=== PATIENT | male | born 1965 | race Caucasian/White ===

== ENCOUNTER 2021-02-04 13:18 | Emergency (ER) | payer OTHER ==
[~2021-02-04] VITALS: Ht 172.7 cm; Wt 68.0 kg
--- NOTE | ~2021-02-04 | EMS ---
[address] [address] EMS Patient Care Report Name: LONNIE MAYEN Room #: PRE M.R.#: [id number] Admission: Attend Phys: Discharge: Date of : 69 Report #: [id number] THIS REPORT FOR: //name// Report Transmitted: 02/04/2021 13:17 EMS Care Summary [facility] Incident [id number] @ 02/04/2021 12:16 Incident Location [address] [place] [address] Patient LONNIE MAYEN Male, 55 Years 1965 Patient Address [address] [place] [address] Patient History Other chronic pancreatitis,Kidney Stone, Patient Allergies No known allergies, Chief Complaint Abdominal pain/discomfort Disposition Transported No Lights/[place] Dispatch Reason Breathing Problem Transported To [facility] Narrative [id number] DISPATCHED EMERGENT IN RESPONSE TO A 911 CALL OF RESPIRATORY DISTRESS. UPON ARRIVAL PT WAS FOUND TO BE LAYING ON HIS SIDE ON THE FLOOR IN A DOOR-WAY. PT WAS ASSESSED PINK WARM AND DRY WELL A&O X4. PT WAS BREATHING AT A FORCED INCREASED RATE AND WAS PHYSICALLY NON-LABORED HOWEVER PT WOULD FORCE unnecessary AND loud RESPIRATIONS. PT HAD NO INDICATION OF DISTRESS. PT INDICATED HE HAD SEVERE ABDOMINAL AND BILATERAL FLANK PAIN. PT INDICATED HE HAD [address] [address] EMS Patient Care Report Name: LONNIE MAYEN Room #: PRE [facility]..#: [id number] Admission: Attend Phys: Discharge: Date of : 69 Report #: [id number] BEEN EXPERIENCING THIS PAIN FOR APRX. A MONTH NOW AND INDICATED HE HAD BEEN TO THE ER ABOUT 3 TIMES WITHIN THE MONTH, MOST RECENT BEING ABOUT 3 DAYS AGO WHERE HE LEFT AMA. PT WAS DX WITH PANCREATITIS AND KIDNEY STONES AT ONE ER VISIT HOWEVER PT INDICATED HE BELIEVED "THEY WERE FULL OF SH*T". PT ALSO INDICATED THAT THEY REFUSED TO ADMIT HIM SO HE WANTED TO TRY ANOTHER HOSPITAL THAT HE hasn't BEEN TO YET. PT WAS ABLE TO AMBULATE INDEPENDENTLY FROM FLOOR TO COT PLACED OUTSIDE. PT WAS THEN SECURED WITH STRAPS X3 AND safely WHEELED TO AMBULANCE. IN AMBULANCE, VITALS WERE LISTED. PT GROANED AND STARTED FORCING excess RESPIRATIONS WHENEVER BEING INTERACTED WITH HOWEVER WAS CALM AND NON-LABORED BREATHING WHEN LEFT ALONE. PT COULD ANSWER ALL QUESTIONS WITH CALM, COMPLETE, statements. ARRIVAL AT DESTINATION WAS WITHOUT INCIDENT. PT WAS ABLE TO SIGN ON HIS OWN BEHALF. PT WAS safely WHEELED TO TRIAGE WHERE HE WAS ABLE TO STAND AND PIVOT FROM COT TO WHEELCHAIR AND WHEELED TO WAITING AREA. TRANSFER OF CARE WAS SUCCESSFUL. [id number] DEPARTED AND RETURNED TO SERVICE. Initial Vitals @12:22Pain: 04/03, @13:11Pain: 04/03, @12:29SpO2: 100, @12:42SpO2: 99, @12:45SpO2: 100, @13:04SpO2: 100, @13:07SpO2: 99, @13:08SpO2: 100, @12:33 @12:31P: 90,R: 18,BP: 139/92, @12:44P: 92,R: 18,BP: 149/95, @12:54P: 93,R: 18,BP: 137/89, @13:04P: 92,R: 18,BP: 150/86, @13:07P: 94,R: 18,BP: 136/98, @12:31GCS: 15, @12:44GCS: 15, @12:54GCS: 15, @13:04GCS: 15, @13:07GCS: 15, Assessments @12:22MENTAL:SKIN:HEENT:LUNG SOUNDS:ABDOMEN:PELVIS//GI:EXTREMITIES:PULSE:NEURO: Impression Acute abdomen Procedures @12:3312-Lead ECGResponse: UnchangedSucceeded [facility] [address] [place] [address] EMS Patient Care Report Name: LONNIE MAYEN Room #: PRE M.R.#: [id number] Admission: Attend Phys: Discharge: Date of : 69 Report #: [id number] Timeline 12:15,Call Received 12:15,Dispatch Notified 12:15,Psap Call 12:16,Dispatched 12:16,En Route 12:20,On Scene 12:22,At Patient 12:22,BP: / M,PULSE: ,RR: R,SPO2: Ox,ETCO2: ,BG: ,PAIN: 10,GCS: , 12:29,BP: / M,PULSE: ,RR: R,SPO2: 100 Ox,ETCO2: ,BG: ,PAIN: ,GCS: , 12:31,BP: 139/92 M,PULSE: 90,RR: 18 R,SPO2: Ox,ETCO2: ,BG: ,PAIN: ,GCS: , 12:31,BP: / M,PULSE: ,RR: R,SPO2: Ox,ETCO2: ,BG: ,PAIN: ,GCS: 15, 12:33,12-Lead ECG,Response: UnchangedSucceeded, 12:33,BP: / M,PULSE: ,RR: R,SPO2: Ox,ETCO2: ,BG: ,PAIN: ,GCS: , 12:41,Depart Scene 12:42,BP: / M,PULSE: ,RR: R,SPO2: 99 Ox,ETCO2: ,BG: ,PAIN: ,GCS: , 12:44,BP: 149/95 M,PULSE: 92,RR: 18 R,SPO2: Ox,ETCO2: ,BG: ,PAIN: ,GCS: , 12:44,BP: / M,PULSE: ,RR: R,SPO2: Ox,ETCO2: ,BG: ,PAIN: ,GCS: 15, 12:45,BP: / M,PULSE: ,RR: R,SPO2: 100 Ox,ETCO2: ,BG: ,PAIN: ,GCS: , 12:54,BP: 137/89 M,PULSE: 93,RR: 18 R,SPO2: Ox,ETCO2: ,BG: ,PAIN: ,GCS: , 12:54,BP: / M,PULSE: ,RR: R,SPO2: Ox,ETCO2: ,BG: ,PAIN: ,GCS: 15, 13:04,BP: / M,PULSE: ,RR: R,SPO2: 100 Ox,ETCO2: ,BG: ,PAIN: ,GCS: , 13:04,BP: 150/86 M,PULSE: 92,RR: 18 R,SPO2: Ox,ETCO2: ,BG: ,PAIN: ,GCS: , 13:04,BP: / M,PULSE: ,RR: R,SPO2: Ox,ETCO2: ,BG: ,PAIN: ,GCS: 15, 13:07,BP: / M,PULSE: ,RR: R,SPO2: 99 Ox,ETCO2: ,BG: ,PAIN: ,GCS: , 13:07,BP: 136/98 M,PULSE: 94,RR: 18 R,SPO2: Ox,ETCO2: ,BG: ,PAIN: ,GCS: , 13:07,BP: / M,PULSE: ,RR: R,SPO2: Ox,ETCO2: ,BG: ,PAIN: ,GCS: 15, 13:08,BP: / M,PULSE: ,RR: R,SPO2: 100 Ox,ETCO2: ,BG: ,PAIN: ,GCS: , 13:11,BP: / M,PULSE: ,RR: R,SPO2: Ox,ETCO2: ,BG: ,PAIN: 10,GCS: , 13:14,At Destination 13:29,Call Closed Disclaimer v1.1 Copyright 2020 [employer] This EMS Care Summary contains data elements from the applicable legal record (which may be displayed differently). It is designed to provide pertinent information for the following purposes: continuity of care, clinical quality, and state data reporting. The complete legal record is available to ED staff and administrators of the receiving hospital in [employer]'s Patient Tracker. All data is provided "as is."
[~2021-02-04 13:18] MED LIST: IBUPROFEN 600600 M1 PO; KEFLEX500 MG PO; NOHOMEMEDICATIONS; NORCO 5-325 TA1 EACH PO; PERCOCET 5-3251 EACH PO; PHENERGAN25 M2 RECTAL; TAMSULOSIN HCL0.4 M1 PER TUBE; TAMSULOSIN HCL0.4 M1 PO
[2021-02-04 14:06] LABS: ABSOLUTE NEUTROPHILS 11.5 thou/uL (1.4-8.2); BASOPHILS 0.3 % (0.0-2.0); EOSINOPHILS 0.2 % (0.0-3.0); HEMOGLOBIN 14.9 gm/dL (14.0-18.0); LYMPHOCYTES 17.2 % (24.0-44.0); MCHC 32.4 g/dL (28.0-37.0); MCV 89.5 fL (80.0-100.0); MONOCYTES 7.2 % (1.0-8.0); PLATELET COUNT 316 thou/uL (150-400); POLYS 75.1 % (36.0-66.0); RBC 5.14 mil/uL (4.50-6.00); RDW 13.7 % (10.5-14.5); WBC 15.3 thou/uL (4.0-11.0)
[2021-02-04 14:12] LABS: CALCIUM 9.5 mg/dL (8.5-10.1); CREATININE 1.4 mg/dL (0.7-1.3); POTASSIUM 3.6 mmol/L (3.5-5.1)
[2021-02-04 14:18] LABS: ALBUMIN 4.1 g/dL (3.4-5.0); TOTAL BILIRUBIN 0.5 mg/dL (0.2-1.0); TOTAL PROTEIN 7.5 g/dL (6.4-8.2)
[2021-02-04 15:08] LABS: URINE BILIRUBIN NEGATIVE (Negative); URINE BLOOD NEGATIVE (Negative); URINE CLARITY CLEAR; URINE COLOR YELLOW; URINE GLUCOSE-RANDOM* NEGATIVE (Negative); URINE KETONES 2+ (Negative); URINE LEUKOCYTES-REFLEX NEGATIVE (Negative); URINE NITRITE-REFLEX NEGATIVE (Negative); URINE PROTEIN (DIPSTICK) NEGATIVE (Negative); URINE UROBILINOGEN 0.2 E.U./dl (0.2-1.0)
[2021-02-04 16:37] VITALS: BP 144/89
--- NOTE | 2021-02-04 16:42 | EKG ---
[address] [address] ELECTROCARDIOGRAM REPORT Name: LONNIE MAYEN [facility] [id number] Admission: 02/04/21 Attend Phys: Discharge: 02/04/21 Date of : 69 Report #: [id number] [facility] ED Test Date: 2021-02-04 Test Time: 16:27:23 Pat Name: LONNIE MAYEN Department: Room: Gender: Podiatry Assistant: cordell : 1965 Requested By: Carleen Galeano Order Number: [id number] MD: Brayden Hare Measurements Intervals Kress Rate: 69 P: -8 [place]: 104 QRS: 15 QRSD: 113 T: 49 QT: 447 QTc: 479 Interpretive Statements Sinus rhythm No significant abnormality No previous ECG available for comparison Electronically Signed On 02-04-2021 16:42:40 CDT by Brayden Hare [email or web address] <ELECTRONICALLY SIGNED> By: Brayden Hare MD, [facility] 02/04/21 1642 1627 1627 Brayden Hare MD, FACC /EPI
== END 2021-02-04 16:38 | disposition home or self-care (01) ==
LOC: ER 13:18
PROVIDERS: Emergency Medicine
DX: R10.84 Generalized abdominal pain (principal)